=== PATIENT | female | born 1960 | race Caucasian/White ===

== ENCOUNTER 2017-11-05 08:40 | Outpatient (CLI) | payer OTHER | END 2017-11-05 08:41 | disposition home or self-care (01) | LOC: BICMAMMO 08:40 | PROVIDERS: ATTEND Family Medicine | DX: Z12.31 Encounter for screening mammogram for malignant neoplasm of breast (principal) | CPT/HCPCS: 77063; 77067 ==

== ENCOUNTER 2018-01-15 14:33 | Outpatient (CLI) | payer OTHER | END 2018-01-15 14:34 | disposition home or self-care (01) | LOC: BICMRI 14:33 | PROVIDERS: ATTEND Psychiatry & Neurology Neurology | DX: G56.91 Unspecified mononeuropathy of right upper limb (principal); M48.03 Spinal stenosis, cervicothoracic region; Z98.1 Arthrodesis status | CPT/HCPCS: 72141 ==

== ENCOUNTER 2018-02-22 11:46 | Emergency (ER) | payer OTHER ==
[2018-02-22] MEDS ORDERED: Methocarbamol 500 MG TAB ONE (12:22)
[2018-02-22] MEDS ORDERED: Meclizine HCl 25 MG TAB ONE (12:22)
[2018-02-22] MEDS ORDERED: Metoclopramide HCl 10 MG/2 ML VIAL ONE (12:22)
--- NOTE | 2018-02-22 13:17 | CT ---
NONCONTRAST HEAD CT: Date: 02/22/18 COMPARISON: 02/25/15. HISTORY: Headache. Dizziness. Difficulty standing. Right parietal pressure. TECHNIQUE: A noncontrast head CT is performed from the skull base to the skull vertex. FINDINGS: No parenchymal hemorrhage or extra-axial hematoma. No midline shift. Basilar cisterns are patent. Bra in volume is age-appropriate. Cortical poole-white matter differentiation is preserved. Ventricles and sulci are patent and symmetric. Adequate aeration of the sinuses and mastoid air cells. Calvarium is intact. IMPRESSION: No acute intracranial process. POS: [facility]
[2018-02-22 13:24] LABS: Bilirubin Negative (Negative); Blood, Urine Negative (Negative); Clarity Clear (Clear); Glucose, Urine (Dipstick) Negative (Negative); Leukocyte Negative (Negative); Nitrite Negative (Negative); Protein, Urine (Dipstick) Negative (Neg-Trace); Urobilinogen 0.2 mg/dL (0.2-1.0)
[2018-02-22 13:25] LABS: #Basophils 0.2 thou/uL (0.0-0.2); #Eosinphils 0.2 thou/uL (0.0-0.7); #Monocytes 0.5 thou/uL (0.11-0.59); #Neutrophils 5.3 thou/uL (1.40-6.50); %Basophils 1.9 % (0.0-1.0); %Eosinophils 2.1 % (0.0-10.0); %Lymphocytes 32.7 % (21.0-51.0); %Monocytes 5.5 % (0.0-10.0); %Neutrophils 57.8 % (42.0-75.0); Hemoglobin 15.1 g/dL (12.0-16.0); Mean Corpuscular HGB CONC 35.8 g/dL (32.0-36.0); Mean Corpuscular Hemoglobin 30.7 pg (27.0-31.0); Mean Corpuscular Volume 85.9 fl (81.0-99.0); Mean Platelet Volume 7.2 fL (7.4-10.4); Platelet Count 346 thou/uL (130-400); RBC Distribution Width 12.4 % (11.5-14.5); Red Blood Cell (RBC) Count 4.91 mill/uL (4.20-5.40); White Blood Cell (WBC) Count 9.1 thou/uL (4.8-10.8)
--- NOTE | 2018-02-22 13:40 | CT ---
CT FACIAL BONES WITHOUT CONTRAST: Date: 02/22/18 HISTORY: Sinus pressure. Headache. Pain. TECHNIQUE: Noncontrast facial bones CT is performed in the axial plane. Reformatted images are submitted for int erpretation. FINDINGS: The visualized brain parenchyma is unremarkable. Bilateral ocular lenses are appropriately located. Both globes are intact. Retrobulbar fat is preserv ed. Symmetric attenuation of the optic nerves and ocular rectus muscles. Limited evaluation of the oral cavity due to dental amalgam artifact. Midline fatty raphe of the tong ue appears to be preserved. Epiglottis has a normal caliber. There is no prevertebral soft tissue swe lling. Visualized cervical spine does not demonstrate any fracture. There is evidence of cervical fusion samara dware with perihardware lucency involving the cervical body screws at C5. There are degenerative changes in both mandibular condyles. Adequate aeration of the mastoid air cell s. On the coronal reformatted images, there is adequate aeration of the ostiomeatal complexes. There is no significant sinus disease. The osseous margins of the sinuses are maintained. No erosion or destru ction. Nasal septum is intact. Small spur is noted. Pterygoid plates and zygomatic arches are unremarkable. IMPRESSION: Unremarkable noncontrast facial bones CT. No evidence of mass or significant sinus disease. POS: [facility]
[2018-02-22 13:42] LABS: ALT (SGPT) 23 U/L (8-55); AST (SGOT) 19 U/L (5-34); Albumin 4.3 g/dL (3.5-5.0); Alkaline Phosphatase 104 U/L (40-150); Anion Gap 15 mmol/L (10-20); BUN (Urea Nitrogen) 7 mg/dL (9.8-20.1); Bilirubin, Total 0.6 mg/dL (0.2-1.2); Calc. Creatinine Clearance 0 mL/min (70-130); Calcium 9.5 mg/dL (7.8-10.44); Carbon Dioxide 27 mmol/L (22-29); Chloride 92 mmol/L (98-107); Estimated GFR-MDRD 82; Globulin 3.4 g/dL (2.4-3.5); Glucose 98 mg/dL (70-105); Potassium 3.6 mmol/L (3.5-5.1); Protein, Total 7.7 g/dL (6.0-8.3); Sodium 130 mmol/L (136-145)
[2018-02-22 13:44] LABS: CKMB 1.3 ng/mL (0-6.6); Troponin I Less than 0.010 ng/mL (< 0.028)
[2018-02-22] MEDS ORDERED: Ketorolac Tromethamine 30 MG/ML VIAL ONE (14:31)
== END 2018-02-22 15:13 | disposition home or self-care (01) ==
LOC: SCSER 11:46
DX: M62.838 Other muscle spasm (principal); R42 Dizziness and giddiness; I10 Essential (primary) hypertension; F17.200 Nicotine dependence, unspecified, uncomplicated; Z79.899 Other long term (current) drug therapy
CPT/HCPCS: 70450; 70486; 80053; 81003; 82553; 84484; 85025; 93005; 96365; 96366; 96375; J1885; J2765

== ENCOUNTER 2018-11-07 09:58 | Outpatient (CLI) | payer OTHER ==
--- NOTE | 2018-11-07 12:10 | BD ---
Exam: DEXA Bone Density History: 58-year-old post-menopausal female for screening. Lumbar Spine: BMD (g/cm2) L1 1.098 T-Score: 1.0 L2 1.224 T-Score: 1.8 L3 1.118 T-Score: 0.3 L4 1.056 T-Score: 0.0 L1-L4 1.122 T-Score: 0.7 Femoral Neck: 1.048 T-Score: 1.8 Total Femur: 1.278 T-Score: 2.8 Impression: Normal bone marrow density. POS: [facility]
== END 2018-11-07 09:59 | disposition home or self-care (01) ==
LOC: BICMAMMO 09:58
PROVIDERS: ATTEND Obstetrics & Gynecology
DX: Z12.31 Encounter for screening mammogram for malignant neoplasm of breast (principal); Z13.820 Encounter for screening for osteoporosis; Z80.3 Family history of malignant neoplasm of breast; Z85.89 Personal history of malignant neoplasm of other organs and systems
CPT/HCPCS: 77063; 77067; 77080

== ENCOUNTER 2019-01-20 10:38 | Outpatient (CLI) | payer OTHER ==
--- NOTE | 2019-01-20 13:10 | RAD ---
CHEST TWO VIEWS: 01/20/2019 HISTORY: Wheezing. Bilateral foot swelling. COMPARISON: 09/03/2009 FINDINGS: There is postoperative hardware within the cervical spine. There is no pneumothorax, pleural fluid, focal consolidation, or alveolar edema. IMPRESSION: No acute findings. POS: [facility]
== END 2019-01-20 10:39 | disposition home or self-care (01) ==
LOC: BICRAD 10:38
PROVIDERS: ATTEND Physician Assistant
DX: R06.2 Wheezing (principal); Z87.891 Personal history of nicotine dependence
CPT/HCPCS: 71046

== ENCOUNTER 2019-07-10 12:09 | Outpatient (CLI) | payer OTHER ==
--- NOTE | 2019-07-10 12:45 | RAD ---
XR Cervical Spine 4 View Min HISTORY: Neck pain. COMPARISON: None. FINDINGS: Patient is undergone anterior cervical fusion extending from C5 to C7. There is mild disc n arrowing and osteophytic change at C4-5. No abnormal motion is seen on the flexion or extension IMPRESSION: Postoperative changes of the spine.
== END 2019-07-10 12:10 | disposition home or self-care (01) ==
LOC: RAD 12:09
PROVIDERS: ATTEND Nurse Practitioner Family
DX: M43.02 Spondylolysis, cervical region (principal); Z98.890 Other specified postprocedural states
CPT/HCPCS: 72050

== ENCOUNTER 2019-10-20 07:45 | Outpatient (CLI) | payer OTHER ==
--- NOTE | 2019-10-20 09:03 | CT ---
CT Pulmonary Lung Scan HISTORY: History tobacco abuse. Smoker off and on for 40 years smoking a pack a day. COMPARISON: None. FINDINGS: The lungs are clear of any infiltrative process. There is a calcified granuloma in the ling ronni, there is also a calcified hilar lymph node.. A small cyst is seen in the right lower lobe. Some minimal interstitial changes seen in the anterior recess on the right appears chronic. I do not appreciate any mediastinal or hilar adenopathy. Visualized liver parenchyma shows no focal findings. The gallbladder is been removed. IMPRESSION: Lung RADS category 1-negative annual follow-up screening exam is recommended.
== END 2019-10-20 07:46 | disposition home or self-care (01) ==
LOC: CT 07:45
PROVIDERS: ATTEND Family Medicine
DX: Z12.2 Encounter for screening for malignant neoplasm of respiratory organs (principal); Z87.891 Personal history of nicotine dependence
CPT/HCPCS: 36415; 80053; 80061; 81001; 82043; 83036; 85025; G0297

== ENCOUNTER 2019-11-11 08:01 | Outpatient (CLI) | payer OTHER ==
--- NOTE | 2019-11-11 10:29 | MMO ---
Bilateral MAMMO Bilat Screen [facility]. CLINICAL HISTORY: Patient is 59 years old and is seen for screening. The patient has the following family history of breast cancer: cousin female. VIEWS: The views performed were: bilateral craniocaudal with tomosynthesis and bilateral mediolateral oblique with tomosynthesis. FILMS COMPARED: The present examination has been compared to prior imaging studies performed at [facility] on 05/13/2015, 08/29/2016, 11/05/2017 and 11/07/2018. This study has been interpreted with the assistance of computer-aided detection. MAMMOGRAM FINDINGS: There are scattered fibroglandular densities. Finding 1: There are stable benign appearing calcifications seen in both breasts. Finding 2: There are stable benign appearing densities seen in both breasts. There are no suspicious masses, suspicious calcifications, or new areas of architectural distortion. IMPRESSION: THERE IS NO MAMMOGRAPHIC EVIDENCE OF MALIGNANCY. A ROUTINE FOLLOW-UP MAMMOGRAM IN 1 YEAR IS RECOMMENDED. THE RESULTS OF THIS EXAM WERE SENT TO THE PATIENT. ACR BI-RADS Category 2 - Benign finding MAMMOGRAPHY NOTE: 1. A negative mammogram report should not delay a biopsy if a dominant of clinically suspicious mass is present. 2. Approximately 10% to 15% of breast cancers are not detected by mammography. 3. Adenosis and dense breasts may obscure an underlying neoplasm. Reported by: KEY TELLO MD Electonically Signed: [id number]
== END 2019-11-11 08:02 | disposition home or self-care (01) ==
LOC: BICMAMMO 08:01
PROVIDERS: ATTEND Family Medicine
DX: Z12.31 Encounter for screening mammogram for malignant neoplasm of breast (principal); Z80.3 Family history of malignant neoplasm of breast
CPT/HCPCS: 77063; 77067

== ENCOUNTER 2020-07-20 10:37 | Outpatient (CLI) | payer OTHER ==
[2020-07-20] MEDS ORDERED: Magnevist 469MG/ML 20 ML VIAL ONE (11:04)
--- NOTE | 2020-07-20 11:51 | MRI ---
MR CERVICAL SPINE WITH AND WITHOUT CONTRAST INDICATION: 60-year-old female with cervical spinal stenosis and neck pain and bilateral hand numbnes s TECHNIQUE: Multiplanar multisequence MR images were obtained of the cervical spine without contrast. COMPARISON: MR cervical spine without contrast from prior radiology associates dated January 15, 2018. FINDINGS: 16 cc of MultiHance was utilized for the exam. Posterior fossa: Within normal limits. Bone marrow signal intensity: There is susceptibility artifact from an ACDF spanning C5-C7. Spinal alignment: Normal. Craniocervical junction: Normal appearing. Prevertebral and perivertebral soft tissues: Visualized soft tissues appear within normal limits. Vertebral levels: C2-C3: No appreciable central canal or neuroforaminal narrowing. C3-4: No appreciable central canal or neuroforaminal narrowing. C4-5: No appreciable central canal or neuroforaminal narrowing. C5-C6: No appreciable central canal or neuroforaminal narrowing. C6-C7:, No appreciable central canal or neuroforaminal narrowing. C7-T1: There is slightly worsening asymmetric to the right broad-based disc bulge inducing moderate t o severe right and mild left neural foraminal narrowing that has worsened since the prior exam. No abnormal enhancement demonstrated. IMPRESSION: 1. Moderate to severe right and mild left neural foraminal narrowing at C7-T1. This has worsened from the prior MR examination.
--- NOTE | 2020-07-20 12:12 | RAD ---
XR Cervical Spine 4 View Min: 07/20/2020 12:08 PM CLINICAL HISTORY: 60-year-old female with cervical stenosis of spine and neck pain COMPARISON: Prior exam dated July 10, 2019 Bones: There is solid ankylosis of the C5-C7 ACDF. The instrumentation projects in the expected posit ion. Intervertebral disc spaces and facet complexes: There is stable adjacent segment degeneration at C4-5 . The moderate facet osteoarthritic changes stable. Spinal alignment: Within normal limits. Prevertebral soft tissues: Normal. Lateral masses: Not well seen Lung apices: Clear. Additional findings: No abnormal translational motion demonstrated. IMPRESSION: Stable postoperative cervical spine with [id number] cervical spondylosis. There appears to be s olid osseous incorporation of interbody bone graft at C5-C7
== END 2020-07-20 10:38 | disposition home or self-care (01) ==
LOC: BICMRI 10:37
PROVIDERS: ATTEND Nurse Practitioner Family
DX: M48.02 Spinal stenosis, cervical region (principal); M47.812 Spondylosis without myelopathy or radiculopathy, cervical region; M48.03 Spinal stenosis, cervicothoracic region; Z98.890 Other specified postprocedural states
CPT/HCPCS: 72050; 72156; 82565; A9579

== ENCOUNTER 2021-01-17 13:55 | Outpatient (CLI) | payer BC | END 2021-01-17 13:56 | disposition home or self-care (01) | LOC: BICCT 13:55 | PROVIDERS: ATTEND Family Medicine | DX: Z12.2 Encounter for screening for malignant neoplasm of respiratory organs (principal); Z87.891 Personal history of nicotine dependence | CPT/HCPCS: 71271 ==

== ENCOUNTER 2021-09-05 14:42 | Outpatient (CLI) | payer BC | END 2021-09-05 14:43 | disposition home or self-care (01) | LOC: BICULT 14:42 | PROVIDERS: ATTEND Family Medicine | DX: M79.89 Other specified soft tissue disorders (principal); Z98.890 Other specified postprocedural states | CPT/HCPCS: 76999 ==

== ENCOUNTER 2022-06-12 08:44 | Outpatient (CLI) | payer BC | END 2022-06-12 08:45 | disposition home or self-care (01) | LOC: BICMAMMO 08:44 | PROVIDERS: ATTEND Family Medicine | DX: Z12.31 Encounter for screening mammogram for malignant neoplasm of breast (principal) | CPT/HCPCS: 77063; 77067 ==

== ENCOUNTER 2022-08-23 12:06 | Outpatient (CLI) | payer BC | END 2022-08-23 12:07 | disposition home or self-care (01) | LOC: BICRAD 12:06 | PROVIDERS: ATTEND Family Medicine | DX: S49.90XA Unspecified injury of shoulder and upper arm, unspecified arm, initial encounter (principal); M54.2 Cervicalgia; R07.81 Pleurodynia; M47.812 Spondylosis without myelopathy or radiculopathy, cervical region; W19.XXXA Unspecified fall, initial encounter | CPT/HCPCS: 72052 ==

== ENCOUNTER 2022-09-28 10:07 | Outpatient (CLI) | payer BC | END 2022-09-28 10:08 | disposition home or self-care (01) | LOC: MRI 10:07 | PROVIDERS: ATTEND Nurse Practitioner Family | DX: M47.22 Other spondylosis with radiculopathy, cervical region (principal); Z98.890 Other specified postprocedural states | CPT/HCPCS: 72141 ==